=== PATIENT | male | born 1985 | race Caucasian/White ===

== ENCOUNTER 2024-07-18 04:20 | Emergency (ER) | payer SELFPAY ==
[~2024-07-18] VITALS: Ht 167.6 cm; Wt 77.0 kg
[2024-07-18 04:21] VITALS: BP 127/88; PULSE 124; RESP 16; TEMP 36.8; O2SAT 99
[2024-07-18 05:11] VITALS: TEMP 98.3
[2024-07-18] MEDS: ACETAMINOPHEN 325MG TABLET PO ONE (05:11)
[2024-07-18] MEDS ORDERED: TOPUD PO (09:04)
== END 2024-07-18 09:41 ==
LOC: ER 04:20
DX: S22.31XA Fracture of one rib, right side, initial encounter for closed fracture (principal); Z02.89 Encounter for other administrative examinations; X58.XXXA Exposure to other specified factors, initial encounter; Y93.89 Activity, other specified; Y92.89 Other specified places as the place of occurrence of the external cause; Y99.8 Other external cause status
CPT/HCPCS: 71101; 99283